=== PATIENT | female | born 1970 | race Caucasian/White ===

== ENCOUNTER 2016-12-30 13:47 | Emergency (ER) | payer MEDICAID ==
[~2016-12-30] VITALS: Ht 167.6 cm; Wt 95.7 kg
[2016-12-30 19:04] VITALS: BP 147/86
== END 2016-12-30 19:04 | disposition home or self-care (01) ==
LOC: ED 13:47
DX: J45.901 Unspecified asthma with (acute) exacerbation (principal)
CPT/HCPCS: J7512; J7613; J7620; J7644

== ENCOUNTER 2017-01-30 11:28 | Emergency (ER) | payer OTHER ==
[2017-01-30] MEDS ORDERED: ALBUTEROL SULFAT3 M3 (14:21)
[2017-01-30] MEDS ORDERED: PROVENTIL0.09 MG/A1 (14:22)
[2017-01-30 15:44] VITALS: BP 104/56
== END 2017-01-30 15:44 | disposition home or self-care (01) ==
LOC: ED 11:28
DX: J45.901 Unspecified asthma with (acute) exacerbation (principal); I50.9 Heart failure, unspecified; Z79.899 Other long term (current) drug therapy
CPT/HCPCS: J0171; J2930; J3475; J7030; J7613; J7644; Q0092

== ENCOUNTER 2017-02-15 16:12 | Emergency (ER) | payer OTHER ==
[~2017-02-15] VITALS: Ht 167.6 cm; Wt 97.5 kg
[~2017-02-15 16:12] MED LIST: ALBUTEROL SULFAT3 M3; PROVENTIL0.09 MG/A1
[2017-02-15 21:26] VITALS: BP 133/64
== END 2017-02-15 21:26 | disposition home or self-care (01) ==
LOC: ED 16:12
DX: J45.901 Unspecified asthma with (acute) exacerbation (principal); Z79.51 Long term (current) use of inhaled steroids
CPT/HCPCS: J7512; J7613; J7620; J7644

== ENCOUNTER 2017-05-14 12:39 | Emergency (ER) | payer OTHER ==
[~2017-05-14] VITALS: Ht 167.6 cm; Wt 88.5 kg
[2017-05-14 12:59] VITALS: Ht 167.6 cm; Wt 88.5 kg
[2017-05-14 16:56] LABS: CALCIUM 8.4 mg/dL (8.5-10.1); CARBON DIOXIDE 25.2 mmol/L (21-32); CHLORIDE SERUM 99 mmol/L (98-107); CREATININE SERUM 0.8 mg/dL (0.6-1.0); GFR1 > 60 mL/min; GLUCOSE SERUM 255 mg/dL (74-106); POTASSIUM SERUM 3.1 mmol/L (3.5-5.1); SODIUM SERUM 135 mmol/L (136-145)
[2017-05-14 16:58] LABS: BASOPHIL % 0.1 % (0-2); PLATELET COUNT 381 x10^3mcL (130-400); RED CELL DISTRIBUTION WIDTH 13.3 % (11.5-14.5)
[2017-05-14 17:01] LABS: ALBUMIN 3.1 g/dL (3.4-5.0); ALKALINE PHOSPHATASE 76 U/L (46-116); ALT/SGPT 19 U/L (14-59); AST/SGOT 13 U/L (15-37); BILIRUBIN TOTAL 0.3 mg/dL (0.20-1.00); TOTAL PROTEIN, SERUM 7.3 g/dL (6.4-8.2)
[2017-05-14 19:07] VITALS: BP 108/61
== END 2017-05-14 19:07 | disposition home or self-care (01) ==
LOC: ED 12:39
PROVIDERS: Specialist
DX: J45.909 Unspecified asthma, uncomplicated (principal)
CPT/HCPCS: 83880; J0171; J3475; J7030; J7512; J7613; J7644

== ENCOUNTER 2017-08-16 15:03 | Emergency (ER) | payer OTHER ==
[~2017-08-16] VITALS: Ht 167.6 cm; Wt 81.6 kg
[2017-08-16 15:10] VITALS: Ht 167.6 cm; Wt 81.6 kg
[2017-08-16 17:22] VITALS: BP 122/73
== END 2017-08-16 17:22 | disposition home or self-care (01) ==
LOC: ED 15:03
DX: S93.402A Sprain of unspecified ligament of left ankle, initial encounter (principal); J45.901 Unspecified asthma with (acute) exacerbation; W01.0XXA Fall on same level from slipping, tripping and stumbling without subsequent striking against object, initial encounter; Y93.89 Activity, other specified; Y92.89 Other specified places as the place of occurrence of the external cause; Y99.8 Other external cause status
CPT/HCPCS: J1100; J7613; J7644

== ENCOUNTER 2017-10-12 14:14 | Emergency (ER) | payer OTHER ==
[~2017-10-12] VITALS: Ht 167.6 cm; Wt 79.4 kg
[2017-10-12 14:18] VITALS: Ht 167.6 cm; Wt 79.4 kg
[2017-10-12 15:41] VITALS: BP 133/89
== END 2017-10-12 15:41 | disposition home or self-care (01) ==
LOC: ED 14:14
DX: J45.901 Unspecified asthma with (acute) exacerbation (principal); Z90.49 Acquired absence of other specified parts of digestive tract
CPT/HCPCS: J7512; J7613; J7644

== ENCOUNTER 2017-12-29 19:26 | Emergency (ER) | payer OTHER ==
[~2017-12-29] VITALS: Ht 167.6 cm; Wt 81.2 kg
[2017-12-29 19:32] VITALS: Ht 167.6 cm; Wt 81.2 kg
[2017-12-29 21:41] VITALS: BP 140/74
== END 2017-12-29 21:41 | disposition home or self-care (01) ==
LOC: ED 19:26
DX: J45.901 Unspecified asthma with (acute) exacerbation (principal)
CPT/HCPCS: J2930; J7613; J7644

== ENCOUNTER 2018-01-08 17:32 | Emergency (ER) | payer OTHER ==
[~2018-01-08] VITALS: Ht 167.6 cm; Wt 80.3 kg
[2018-01-08 20:08] VITALS: BP 127/63
== END 2018-01-08 20:14 | disposition home or self-care (01) ==
LOC: ED 17:32
DX: J45.901 Unspecified asthma with (acute) exacerbation (principal); Z90.89 Acquired absence of other organs
CPT/HCPCS: J7512; J7613; J7644

== ENCOUNTER 2018-03-02 22:44 | Emergency (ER) | payer SELFPAY ==
[2018-03-02 22:49] VITALS: Ht 167.6 cm
[2018-03-02 23:36] LABS: BASOPHIL % 0.2 % (0-2); PLATELET COUNT 315 x10^3mcL (130-400); RED CELL DISTRIBUTION WIDTH 13.7 % (11.5-14.5)
[2018-03-02 23:37] LABS: CALCIUM 8.3 mg/dL (8.5-10.1); CARBON DIOXIDE 30.1 mmol/L (21-32); CHLORIDE SERUM 103 mmol/L (98-107); CREATININE SERUM 0.9 mg/dL (0.6-1.0); GFR1 > 60 mL/min; GLUCOSE SERUM 127 mg/dL (74-106); POTASSIUM SERUM 3.5 mmol/L (3.5-5.1); SODIUM SERUM 139 mmol/L (136-145)
[2018-03-02 23:42] LABS: ALKALINE PHOSPHATASE 73 U/L (46-116); ALT/SGPT 17 U/L (14-59); AST/SGOT 13 U/L (15-37); BILIRUBIN TOTAL 0.4 mg/dL (0.20-1.00); TOTAL PROTEIN, SERUM 6.8 g/dL (6.4-8.2)
[2018-03-02 23:45] LABS: ALBUMIN 3.1 g/dL (3.4-5.0)
[2018-03-03 01:53] VITALS: BP 127/85
== END 2018-03-03 01:53 | disposition home or self-care (01) ==
LOC: ED 22:44
PROVIDERS: Emergency Medicine
DX: J45.901 Unspecified asthma with (acute) exacerbation (principal); L03.115 Cellulitis of right lower limb
CPT/HCPCS: J2930; J7030; J7613; J7644; Q0092

== ENCOUNTER 2018-03-06 18:46 | Emergency (ER) | payer SELFPAY ==
[~2018-03-06] VITALS: Ht 167.6 cm; Wt 81.2 kg
[2018-03-06 19:40] VITALS: Ht 167.6 cm; Wt 81.2 kg
[2018-03-07 00:13] VITALS: BP 125/70
== END 2018-03-07 00:13 | disposition home or self-care (01) ==
LOC: ED 18:46
DX: J45.901 Unspecified asthma with (acute) exacerbation (principal)
CPT/HCPCS: J7512; J7620

== ENCOUNTER 2018-06-01 16:02 | Emergency (ER) | payer SELFPAY ==
[~2018-06-01] VITALS: Ht 157.5 cm; Wt 82.6 kg
[2018-06-01 16:09] VITALS: Ht 157.5 cm; Wt 82.6 kg
[2018-06-01 17:26] VITALS: BP 138/80
== END 2018-06-01 17:26 | disposition home or self-care (01) ==
LOC: ED 16:02
DX: J45.909 Unspecified asthma, uncomplicated (principal)
CPT/HCPCS: J7512; J7620